=== PATIENT | male | born 1970 | race Caucasian/White ===

== ENCOUNTER 2017-08-09 17:49 | Emergency (ER) | payer OTHER ==
[~2017-08-09] VITALS: Ht 160 cm; Wt 72.7 kg
[2017-08-09] MEDS ORDERED: NS 1,000 ML IV ONE (19:15)
[2017-08-09 19:41] LABS: BASO % 0.3 % (0.0-1.0); EOS % 0.3 % (0.0-3.0); IMMATURE GRANULOCYTE % 0.3 % (0-0); LYMPH # 1.4 10^3/uL (1.5-4.5); LYMPH % 11.7 % (24.0-44.0); MEAN CORPUSCULAR HEMOGLOBIN 29.8 pg (27.0-33.0); MEAN CORPUSCULAR HGB CONC 33.9 g/dl (32.0-36.5); MONO # 0.5 10^3/uL (0.0-0.8); MONO % 4.6 % (0.0-5.0); NEUTROPHILS # 9.8 10^3/uL (1.8-7.7); NEUTROPHILS % 82.8 % (36.0-66.0); PLATELET COUNT, AUTOMATED 294 10^3/uL (150-450); RED CELL DISTRIBUTION WIDTH 12.9 % (11.5-14.5); WHITE BLOOD COUNT 11.8 10^3/uL (4.0-10.0)
[2017-08-09 20:09] LABS: ALBUMIN 4.3 GM/DL (3.2-5.2); ALBUMIN/GLOBULIN RATIO 1.02 (1.00-1.93); ALKALINE PHOSPHATASE 70 U/L (45-117); ALT/SGPT 29 U/L (12-78); ANION GAP 7 MEQ/L (8-16); AST/SGOT 19 U/L (7-37); BILIRUBIN,DIRECT < 0.1 MG/DL (0.0-0.2); BILIRUBIN,TOTAL 0.4 MG/DL (0.2-1.0); BLOOD UREA NITROGEN 17 MG/DL (7-18); CARBON DIOXIDE LEVEL 29 MEQ/L (21-32); CHLORIDE LEVEL 103 MEQ/L (98-107); CREATININE FOR GFR 1.13 MG/DL (0.70-1.30); GLOMERULAR FILTRATION RATE > 60.0 (>60); GLUCOSE, FASTING 101 MG/DL (70-105); SODIUM LEVEL 139 MEQ/L (136-145); TOTAL PROTEIN 8.5 GM/DL (6.4-8.2)
[2017-08-09] MEDS ORDERED: LIDOCAINE 2% MDV 20 ML VIAL SC ONE (20:30)
[2017-08-09] MEDS ORDERED: ISOVUE-370 76% 100ML VIAL (Q9967) As Ordered ONE (20:58)
[2017-08-09] MEDS ORDERED: DICYCLOMINE INJ 20MG/2ML (J0500) IM ONE (21:00)
[2017-08-09 23:54] VITALS: BP 131/90
--- NOTE | 2017-08-10 10:19 | ER ---
DATE OF CONSULTATION: 08/09/2017 REASON FOR CONSULTATION: Crampy abdominal pain with abnormal CT scan of the abdomen. HISTORY OF PRESENT ILLNESS: The patient is a healthy 47-year-old man who presented to the emergency department for evaluation of some crampy upper abdominal pain. The patient reported that he had noted occasional waves of discomfort across the upper abdomen early on the morning of the . He had a cup of coffee early in the morning. He noted a bowel movement as well which was normal. During the course of the morning up until about noon, the discomfort increased in intensity. He reports having had a pork barbecue sandwich in the early afternoon. He was subsequently at the [facility] for dinner at about 5 but the pains became much more intense. He was unable to take more than a couple bites of salad and then had to leave the restaurant because of discomfort. He describes waves of pain that come intermittently. These have varied in intensity up to perhaps a 7-8/10. He reports that he had driven back from [place] to [place] yesterday. He does report that his main snack item while driving was dried shredded coconut. He reports having had some chicken tenders during the day on the and then on the evening of the after arriving in the [facility], he had two slices of pizza. He did not really have any discomfort until this morning. He has had no nausea or vomiting. He denies any fevers or chills. He denies any prior similar episodes of pain. In the emergency department, he was evaluated with some blood work and subsequently had a CT scan of the abdomen and pelvis. The physician's culture media laboratory assistant asked me to evaluate the patient and make recommendations. MEDICATIONS: The patient is on no regularly scheduled medications. Today he had taken a dose of aspirin followed by Pepcid and then dose of Zantac without any relief. ALLERGIES: He has no known drug allergies. SURGICAL HISTORY: Entirely negative. MEDICAL HISTORY: He has had renal stones before. FAMILY HISTORY: Noncontributory. REVIEW OF SYSTEMS: Shows no history of cardiac symptoms. He has no shortness of breath, cough or wheezing. He denies any history of seizure or stroke. There is no history of deep venous thrombosis (DVT) or pulmonary embolus. He has had no recent dysuria or hematuria. He has had no melena, hematochezia, diarrhea or constipation. He has not had any prior similar episodes of cramping. There are no bone or joint issues. SOCIAL HISTORY: The patient apparently works in [place] but comes home on weekends. PHYSICAL EXAMINATION: The patient is a middle-aged man lying quietly on the stretcher. He sits up on the edge of the stretcher without apparent difficulty or discomfort when I came to examine him. He is alert and oriented and cooperative. Skin is warm and dry. Sclerae are anicteric. His vitals show a temperature of 99.6, pulse is 91 and blood pressure is 139/85 with respirations of 18. Heart exam shows a regular rhythm. The lungs are clear to auscultation. The abdomen is nondistended. He has bowel sounds present. There is a very small umbilical hernia centrally within the umbilical dimple. There is no tympany to percussion. There is no tenderness to percussion. The abdomen is soft and without appreciable tenderness at this time. Extremities are without edema and he has intact radial and pedal pulses. Laboratory studies include a CBC that showed a white count of 12 with a hemoglobin of 15, hematocrit of 45 and platelet count of 294,000. Differential count showed 83% neutrophils and 12% lymphocytes. His chemistry profile showed normal electrolytes with a BUN of 17, creatinine 1.1 and a glucose of 101. Liver function tests are normal. Lipase is normal. CT scan shows a stone in the bladder. He has perhaps 2 feet of mid small bowel that are mildly distended and fluid-filled with an area of some wall thickening within this area. A discrete point of obstruction is not identified. There is no significant free fluid and there is certainly no free air. IMPRESSION: 1. Crampy upper abdominal pain of uncertain etiology. RECOMMENDATIONS: The patient has a CT scan that shows some mildly dilated mid small bowel. The etiology of this is not clear. This could represent result of dietary indiscretion or perhaps a viral illness. He does report that he eats a lot of dried shredded coconut as a snack food and the possibility that this had rehydrated within the bowel and caused a degree of obstruction has occurred to me. His discomfort seems to be decreased from the time of his original presentation to the hospital. At present, he feels well other than a mild ache and his abdomen is benign. I think he appears to be doing well enough to consider discharge home. I would recommend a liquid diet until his symptoms have completely resolved. If he notes worsening pain or more persistent pain, then he should return to the emergency department for re-evaluation. DOUGIE
--- NOTE | 2017-08-11 07:38 | REPUSA ---
CT of the abdomen and pelvis with contrast Clinical statement: Pain. Technique: Multiple axial CT images were obtained from the base of the lungs through the floor of the pelvis utilizing 5 mm axial slices after administration of nonionic intravenous contrast. Coronal an d sagittal reconstructions were also obtained. No comparison is available. Findings: Chest: The visualized lung bases are clear. Abdomen: The liver, spleen, pancreas, kidneys, gallbladder, and adrenal glands are unremarkable. The aorta is within normal limits. There is no evidence of abdominal lymphadenopathy or ascites. Pelvis: There is moderate fluid distention small bowel. Stool impaction is seen in the small bowel, j ust proximal to the site of bowel wall thickening and narrowing in the distal jejunum/proximal ileum. No focal mass or inflammatory changes are otherwise visualized. The urinary bladder contains a large stone in the right posterior base measuring 1.6 x 1.3 cm. The other pelvic structures appear grossly intact. There is no evidence of pelvic lymphadenopathy or ascites. Bones: There are no suspicious osseous abnormalities seen. Impression: 1. Moderate small bowel ileus versus early small bowel obstruction in the distal jejunum/proximal ile um. Mild bowel thickening is seen at the site. The findings are likely secondary to effusions. Close interval follow-up is recommended. 2. Large nonobstructing 1.6 cm stone in the urinary bladder. No evidence of hydronephrosis.
== END 2017-08-09 23:57 | disposition home or self-care (01) ==
LOC: M ED 17:49
DX: K56.7 Ileus, unspecified (principal); Z87.442 Personal history of urinary calculi
CPT/HCPCS: 74177; 80048; 80076; 83690; 85025; 96360; 96361; 96372; 99284; J0500; Q9967